=== PATIENT | female | born 1940 | race Asian ===

== ENCOUNTER 2017-04-28 16:55 | Emergency (ER) | payer MEDICARE, OTHER ==
[~2017-04-28] VITALS: Ht 157.5 cm; Wt 57.5 kg
[~2017-04-28 16:55] MED LIST: CITA10TA4 PO; CLON-352 PO; COZA50TA PO; LISI-360 PO; METO50TA OR
[2017-04-28 17:04] VITALS: BP 168/105; PULSE 98; RESP 14; TEMP 98.3; O2SAT 98
[2017-04-28] MEDS ORDERED: LIPI20TA PO (17:45)
[2017-04-28] MEDS ORDERED: NIFE30TA61 PO (17:45)
[2017-04-28] MEDS ORDERED: LIPI10TA PO (17:45)
[2017-04-28] MEDS ORDERED: METF500T PO (17:45)
[2017-04-28] MEDS ORDERED: CLON0.1T PO (17:45)
--- NOTE | 2017-04-28 17:53 | PD ---
HPI Chief Complaint: Hypertension Time Seen by Provider: 17:39 Travel History International Travel<30 days: No Contact w/Intl Traveler<30days: No Traveled to known affect area: No History of Present Illness HPI Patient is a 77 year old female presents with generalized weakness, "foggy eyes ", fatigue for the past month. Patient states she's been seen by her PCP for this and they did blood work and said everything was fine. Patient states that today she had an episode of chest tightness and lip tingling which caused her to come into the ER. She noticed her BP was elevated as well as her HR to 100. Patient accompanied by her who thinks she's having a stroke. No focalized weakness, no visual loss and no facial droop and no altered mental status and no dysphasia. patient states she has not had a stress test in 2.5 years, is diabetic but has not had any abnormal sugars. has an appointment with her acute care nursing assistant dr. pacheco tomorrow. PFSH Past Medical History Cancer: Yes (RECTAL) Cardiac Catheterization: No Cardiovascular Problems: No High Cholesterol: Yes (lipitor) Congestive Heart Failure: No Diabetes: Yes Patient Takes Glucophage: Yes Diminished Hearing: No Hypertension: Yes Tetanus Vaccination: > 5 Years Influenza Vaccination: No PNEUMOCCOCAL Vaccine (Year): 2 Menopausal: Yes Past Surgical History Coronary Artery Bypass Graft: No Other Surgery: Yes (RECTAL SX FOR CANCER, STOMA) Social History Alcohol Use: No Tobacco Use: No (quit 10/2011) Substance Use: No Allergies-Medications (Allergen,Severity, Reaction): Coded Allergies: Alcohol (Verified Allergy, Severe, Tachycardia, 04/28/17) Reported Meds & Prescriptions Reported Meds & Active Scripts Active Reported Nifedipine ER 24 HR (Nifedipine) 30 Mg Tab 30 Mg PO DAILY Lipitor (Atorvastatin Calcium) 20 Mg Tab 20 Mg PO HS Lipitor (Atorvastatin Calcium) 10 Mg Tab 10 Mg PO BID Metformin (Metformin HCl) 500 Mg Tab 500 Mg PO BIDPC With meals Clonidine (Clonidine HCl) 0.1 Mg Tab 0.1 Mg PO TID Review of Systems Except as stated in HPI: all other systems reviewed are Neg Physical Exam Narrative GENERAL: WD/WN in nad SKIN: Warm and dry. HEAD: Atraumatic. Normocephalic. EYES: Pupils equal and round. No scleral icterus. No injection or drainage. ENT: No nasal bleeding or discharge. Mucous membranes pink and moist. NECK: Trachea midline. No JVD. CARDIOVASCULAR: Regular rate and rhythm. No MGR. 2+ bialterally equal pulses in all four extremities. RESPIRATORY: No accessory muscle use. Clear to auscultation. Breath sounds equal bilaterally. GASTROINTESTINAL: Abdomen soft, non-tender, nondistended. Hepatic and splenic margins not palpable. MUSCULOSKELETAL: Extremities without clubbing, cyanosis, or edema. No obvious deformities. NEUROLOGICAL: Awake and alert. CN2-12 grossly intact. 5/5 strength in all 4 extremities. Cerebellar testing negative. PSYCHIATRIC: Appropriate mood and affect; insight and judgment normal. Data Data Last Documented VS Vital Signs Date Time Temp Pulse Resp B/P Pulse Ox O2 Delivery O2 Flow Rate FiO2 04/28/17 19:32 77 18 168/100 97 04/28/17 18:01 Room Air 04/28/17 17:04 98.3 Orders Ckmb (Isoenzyme) Profile (04/28/17 17:51) Complete Blood Count With Diff (04/28/17 17:51) Comprehensive Metabolic Panel (04/28/17 17:51) Magnesium (Mg) (04/28/17 17:51) Prothrombin Time / Inr (Pt) (04/28/17 17:51) Act Partial Throm Time (Ptt) (04/28/17 17:51) Troponin I (04/28/17 17:51) Chest, Single Ap (04/28/17 17:51) Ecg Monitoring (04/28/17 17:51) Iv Access Insert/Monitor (04/28/17 17:51) Oximetry (04/28/17 17:51) Oxygen Administration (04/28/17 17:51) Sodium Chloride 0.9% Flush (Ns Flush) (04/28/17 18:00) Thyroid Stimulating Hormone (04/28/17 17:52) Labs Laboratory Tests Test 04/28/17 18:05 White Blood Count 4.9 TH/MM3 Red Blood Count 4.33 MIL/MM3 Hemoglobin 12.9 GM/DL Hematocrit 38.1 % Mean Corpuscular Volume 88.0 FL Mean Corpuscular Hemoglobin 29.9 PG Mean Corpuscular Hemoglobin 33.9 % Concent Red Cell Distribution Width 12.2 % Platelet Count 267 TH/MM3 Mean Platelet Volume 7.4 FL Neutrophils (%) (Auto) 62.8 % Lymphocytes (%) (Auto) 26.4 % Monocytes (%) (Auto) 8.9 % Eosinophils (%) (Auto) 1.1 % Basophils (%) (Auto) 0.8 % Neutrophils # (Auto) 3.0 TH/MM3 Lymphocytes # (Auto) 1.3 TH/MM3 Monocytes # (Auto) 0.4 TH/MM3 Eosinophils # (Auto) 0.1 TH/MM3 Basophils # (Auto) 0.0 TH/MM3 CBC Comment DIFF FINAL Differential Comment Prothrombin Time 10.0 SEC Prothromb Time International 0.9 RATIO Ratio Activated Partial 25.1 SEC Thromboplast Time Sodium Level 141 MEQ/L Potassium Level 3.8 MEQ/L Chloride Level 106 MEQ/L Carbon Dioxide Level 26.1 MEQ/L Anion Gap 9 MEQ/L Blood Urea Nitrogen 17 MG/DL Creatinine 0.85 MG/DL Estimat Glomerular Filtration 65 ML/MIN Rate Random Glucose 131 MG/DL Calcium Level 8.8 MG/DL Magnesium Level 2.3 MG/DL Total Bilirubin 0.6 MG/DL Aspartate Amino Transf 20 U/L (AST/SGOT) Alanine Aminotransferase 27 U/L (ALT/SGPT) Alkaline Phosphatase 102 U/L Total Creatine Kinase 44 U/L Troponin I LESS THAN 0.02 NG/ML Total Protein 7.5 GM/DL Albumin 3.9 GM/DL Thyroid Stimulating Hormone 0.920 uIU/ML 3rd Gen [facility] Medical Decision Making Medical Screen Exam Complete: Yes Emergency Medical Condition: Yes Differential Diagnosis Stroke seems highly unlikely, acs, ami, anemia, hypothyroid, electrolyte abnormality. Narrative Course Patient presents with cc of generalized weakness for the past month. Presents today for lip tingling and finding of elevated BP and HR on their home machine. No focal deficits on physical exam. No history to suggest focal deficits. Could and need to consider atypical ACS as she is now having some intermittant chest tightness. Patient initial EKG, Troponin negative. She states has appointment with Dr. Pacheco tomorrow. After lengthy discussion regarding outpatient versus inpatient stress test, patient initially opts for observation status. 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 I discussed with the patient that some amount of risk is taken with this approach and that she understands that until cleared by acute care nursing assistant cannot completely exclude this as atypical ACS and she is at risk of MACE and and permanent disability. She verbalized understanding and wishes to follow up with her acute care nursing assistant. Diagnosis Primary Impression: Chest pain Additional Instructions: Follow-up with Dr. Pacheco tomorrow as scheduled, chest pain or shortness of breath return return to the emergency department immediately. Also follow- up the primary care physician. Disposition: 01 DISCHARGE HOME Condition: Stable Sal[place] Stark MD Apr 28, 2017 17:52
[2017-04-28 18:00] VITALS: O2SAT 96
[2017-04-28] MEDS ORDERED: SODIUM CHLORIDE 0.9% FLUSH 10 ML FLUSH IVF PRN (18:00)
[2017-04-28 18:12] LABS: BASOPHIL % 0.8 % (0.0-2.0); EOSINOPHIL # 0.1 TH/MM3 (0-0.4); EOSINOPHIL % 1.1 % (0.0-4.0); HEMATOCRIT 38.1 % (35.0-46.0); HEMO FLAGS DIFF FINAL; LYMPH % 26.4 % (9.0-44.0); LYMPHOCYTE # 1.3 TH/MM3 (1.0-4.8); MEAN CORPUSCULAR HEMOGLOBIN 29.9 PG (27.0-34.0); MEAN CORPUSCULAR HGB CONC 33.9 % (32.0-36.0); MONO % 8.9 % (0.0-8.0); NEUT % 62.8 % (16.0-70.0); PLATELET COUNT 267 TH/MM3 (150-450); RED BLOOD COUNT 4.33 MIL/MM3 (4.00-5.30); RED CELL DISTRIBUTION WIDTH 12.2 % (11.6-17.2); WHITE BLOOD COUNT 4.9 TH/MM3 (4.0-11.0)
[2017-04-28 18:19] LABS: CHLORIDE 106 MEQ/L (98-107); POTASSIUM 3.8 MEQ/L (3.5-5.1); SODIUM (NA) 141 MEQ/L (136-145)
[2017-04-28 18:22] LABS: ANION GAP 9 MEQ/L (5-15); BICARBONATE 26.1 MEQ/L (21.0-32.0); MAGNESIUM 2.3 MG/DL (1.5-2.5)
[2017-04-28 18:23] LABS: APTT (PATIENT) 25.1 SEC (24.3-30.1); BLOOD UREA NITROGEN 17 MG/DL (7-18); INTERNATIONAL NORMALIZED RATIO 0.9 RATIO
[2017-04-28 18:25] LABS: ALT (GPT) 27 U/L (10-53)
[2017-04-28 18:26] LABS: AST (GOT) 20 U/L (15-37); GLOMERULAR FILTRATION RATE 65 ML/MIN (>89)
[2017-04-28 18:27] LABS: TOTAL BILIRUBIN ADULT 0.6 MG/DL (0.2-1.0)
[2017-04-28 18:28] LABS: ALKALINE PHOSPHATASE 102 U/L (45-117)
[2017-04-28 18:31] LABS: CREATINE KINASE 44 U/L (26-192)
[2017-04-28 19:32] VITALS: BP 168/100
--- NOTE | 2017-04-29 15:35 | RADRPT ---
EXAM DATE/TIME: 04/28/2017 18:10 [facility] COMPARISON: No previous studies available for comparison. INDICATIONS : Chest pain, tightness off and on for 1 month MEDICAL HISTORY : Hypertension. Diabetes mellitus type II. SURGICAL HISTORY : None. ENCOUNTER: Initial ACUITY: 1 month PAIN SCORE: 4/10 LOCATION: Bilateral chest FINDINGS: A single view of the chest demonstrates the lungs to be symmetrically aerated without evidence of mas s, infiltrate or effusion. The cardiomediastinal contours are unremarkable. Aorta is calcified and t ortuous. Osseous structures are intact. CONCLUSION: No acute disease. Hood Moy Jr., MD on April 29, 2017 at 15:32 Board Certified Radiologist. This report was verified electronically.
== END 2017-04-28 19:33 | disposition home or self-care (01) ==
LOC: PHED 16:55
DX: R07.9 Chest pain, unspecified (principal); R53.1 Weakness; R20.2 Paresthesia of skin; R53.83 Other fatigue; I10 Essential (primary) hypertension; E11.9 Type 2 diabetes mellitus without complications; E78.00 Pure hypercholesterolemia, unspecified; Z79.84 Long term (current) use of oral hypoglycemic drugs; Z79.899 Other long term (current) drug therapy; Z85.048 Personal history of other malignant neoplasm of rectum, rectosigmoid junction, and anus; Z87.891 Personal history of nicotine dependence
CPT/HCPCS: 71010; 80053; 82550; 83735; 84443; 84484; 85025; 85610; 85730

== ENCOUNTER 2017-10-18 16:22 | Emergency (ER) | payer OTHER ==
[~2017-10-18] VITALS: Ht 157.5 cm; Wt 56.6 kg
[~2017-10-18 16:22] MED LIST changes: -CITA10TA4 PO; -CLON-352 PO; +CLON0.1T PO; -COZA50TA PO; +LIPI10TA PO; +LIPI20TA PO; -LISI-360 PO; +METF500T PO; -METO50TA OR; +NIFE30TA61 PO
[2017-10-18 16:40] VITALS: BP 109/60; PULSE 74; RESP 20; TEMP 97.7; O2SAT 98
[2017-10-18] MEDS ORDERED: LISI10TA3 PO (17:02)
[2017-10-18] MEDS ORDERED: ASPI-516 CHEW (17:02)
[2017-10-18] MEDS ORDERED: LEVA500T33 PO (18:12)
[2017-10-18] MEDS ORDERED: BENZ100 PO (18:13)
--- NOTE | 2017-10-18 18:14 | PD ---
HPI Chief Complaint: Cold / Flu Symptoms Time Seen by Provider: 17:17 Travel History International Travel<30 days: No Contact w/Intl Traveler<30days: No Traveled to known affect area: No History of Present Illness HPI 77 -year-old female here with active cough and reportedly colored sputum. Cough has been present for approximately 2 weeks. She was treated with azithromycin which improved symptoms but then they returned. She reports colored sputum over the last several days. Denies fever or chills. Symptom severity is moderate. No aggravating factors. She denies chest pain, shortness of breath, nausea vomiting or diarrhea. PFSH Past Medical History Cancer: Yes (RECTAL) Cardiac Catheterization: No Cardiovascular Problems: Yes (HTN) High Cholesterol: Yes (lipitor) Congestive Heart Failure: No Diabetes: Yes Patient Takes Glucophage: Yes Diminished Hearing: No Hypertension: Yes Tetanus Vaccination: Unknown Influenza Vaccination: No PNEUMOCCOCAL Vaccine (Year): 2 ?: Not Menopausal: Yes Past Surgical History Coronary Artery Bypass Graft: No Other Surgery: Yes (RECTAL SX FOR CANCER, STOMA) Social History Alcohol Use: No Tobacco Use: No (quit 10/2011) Substance Use: No Allergies-Medications (Allergen,Severity, Reaction): Coded Allergies: alcohol (Verified Allergy, Severe, Tachycardia, 10/18/17) Reported Meds & Prescriptions Reported Meds & Active Scripts Active Tessalon Perles (Benzonatate) 100 Mg Cap 100 Mg PO TID PRN Levaquin (Levofloxacin) 500 Mg Tablet 500 Mg PO DAILY 7 Days Reported Aspirin 81 Mg Chew 81 Mg CHEW DAILY Lisinopril 10 Mg Tab 10 Mg PO BID Nifedipine ER 24 HR (Nifedipine) 30 Mg Tab 30 Mg PO DAILY Lipitor (Atorvastatin Calcium) 20 Mg Tab 20 Mg PO HS Metformin (Metformin HCl) 500 Mg Tab 500 Mg PO BIDPC With meals Clonidine (Clonidine HCl) 0.1 Mg Tab 0.1 Mg PO TID Review of Systems Except as stated in HPI: all other systems reviewed are Neg General / Constitutional: No: Fever Eyes: No: Visual changes HENT: No: Headaches Cardiovascular: No: Chest Pain or Discomfort Respiratory: Positive: Cough Gastrointestinal: No: Abdominal Pain Genitourinary: No: Dysuria Musculoskeletal: No: Pain Skin: No Rash Physical Exam Narrative GENERAL: Alert and well-appearing 77-year-old female. No distress. SKIN: Warm and dry. HEAD: Normocephalic. EYES: No injection or drainage. NECK: Supple, trachea midline. CARDIOVASCULAR: Regular rate and rhythm RESPIRATORY: Breath sounds equal bilaterally. No accessory muscle use. GASTROINTESTINAL: Abdomen soft, non-tender, nondistended. MUSCULOSKELETAL: No cyanosis, or edema. BACK: Nontender without obvious deformity. No CVA tenderness. Data Data Last Documented VS Vital Signs Date Time Temp Pulse Resp B/P (MAP) Pulse Ox O2 Delivery O2 Flow Rate FiO2 10/18/17 16:40 97.7 74 20 109/60 (76) 98 Orders Orders Influenzae A/B Antigen (10/18/17 17:17) Ed Discharge Order (10/18/17 18:14) MDM Medical Decision Making Medical Screen Exam Complete: Yes Emergency Medical Condition: Yes Differential Diagnosis Pneumonia, bronchitis, influenza Narrative Course 77-year-old female here with productive cough and colored sputum. She was treated by her primary doctor with azithromycin which improved her symptoms but then returned. She is afebrile. Her vital signs are stable. She is nontoxic- appearing. Influenza negative. She will be treated for bronchitis. Diagnosis Primary Impression: Bronchitis Referrals: Primary Care Physician Additional Instructions: Medications as prescribed. Rest and stay well hydrated. Follow-up with her primary doctor. Scripts Benzonatate (Tessalon Perles) 100 Mg Cap 100 MG PO TID Y for COUGH, #12 CAP 0 Refills Prov: Brooke Lowe 10/18/17 Levofloxacin (Levaquin) 500 Mg Tablet 500 MG PO DAILY for Infection for 7 Days, #7 TAB 0 Refills Prov: Brooke Lowe 10/18/17 Disposition: 01 DISCHARGE HOME Condition: Stable Brooke Lowe Oct 18, 2017 18:14
== END 2017-10-18 18:38 | disposition home or self-care (01) ==
LOC: PHEFT 16:22
DX: J40 Bronchitis, not specified as acute or chronic (principal); I10 Essential (primary) hypertension; E11.9 Type 2 diabetes mellitus without complications; E78.00 Pure hypercholesterolemia, unspecified; Z79.84 Long term (current) use of oral hypoglycemic drugs; Z85.038 Personal history of other malignant neoplasm of large intestine
CPT/HCPCS: 87804; 99284